=== PATIENT | female | born 1980 | race Caucasian/White ===

== ENCOUNTER 2020-12-07 06:13 | Inpatient (IN) | payer OTHER, SELFPAY ==
[2020-12-07] VITALS (108 sets, daily range): BP systolic 79–155; BP diastolic 51–97; PULSE 80–137; RESP 16–20; TEMP 36.5–37.3; O2SAT 91–99; BMI 33.8
--- NOTE | 2020-12-07 06:13 | LDADM ---
This patient, Lisa Pederson, was admitted to Labor/Delivery/Recovery 105 on 12/07/20 at 06:13. Plans for labor, pain management and were discussed with patient. Patient/family oriented to hospital policies and general routines including ID bracelet, bed and alarms, visiting hours, pain management, procedures, bathroom and other care routines, personal items, smoking policy, room service/diet and guest tray routines, security routines, and visiting hours. Patient/Family are encouraged to report perceived risks to care and to ask questions if they do not understand what they are told or what they should do. See OBIX for further documentation.
--- NOTE | 2020-12-07 06:56 | PM.IMHP ---
H&P: HPI History of Present Illness Date/Time: 12/07/20 06:56 40 yo presents for IOL at 39w6d. c/b tobacco use,benzodiazepine use, AMA, GBS, INGRIS, MTHFR, prediabetes, and FGR - 12th%efw. Still smoking 2 pack of cigarettes per day.Her care began on04/17/20. Patient was referred to Maternal- Medicine for advanced maternal age and smoking /benzodiazepine use but patient was noncompliant and never showed up to consultations. She had 11 visits was monitored with serial ultrasounds showing growth restrictions with the baby at the 12th percentile estimated weight normal and active fluid volume at the end of October. Once again patient was noncompliant with her biophysical profiles and follow-up ultrasounds with Doppler studies. She continues to smoke 2 packs of cigarettes per day despite having pneumonia during her . She had an abnormal 1 hour glucose 162 but failed to get the 3 hour glucose tolerance test and we checked the hemoglobin A1c that was 5.5% normal. Her genetic screening test were all negative the N I PT and AFP were normal. A vertex single female infant being identified with a negative anomaly screen on ultrasound. The group B strep test is negative. And her drug screen was positive for the benzodiazepine. she is now being admitted for elective induction of labor with oxytocin at 40 weeks. I explained her condition procedure and risks involved with possible labor abnormalities in maternal and indications for delivery with risks involved including but not limited to bleeding, infection, injury to bladder, bowel, baby, DVT, pneumonia, wound infection, urinary tract infection, hemorrhage and the risk of anesthesia. She understands all this accepts and agrees to proceed Chief Complaint: elective induction of labor term fgr Review of Systems Review of Systems: All systems reviewed & are unremarkable except as noted in HPI and below Constitutional: Constitutional: Reports no additional constitutional complaints Eyes: Eyes: Reports no additional eye complaints ENT: Reports system reviewed and no additional complaints, except as documented Cardiovascular: Cardiovascular: Reports no additional cardiovascular complaints Respiratory: Respiratory: Reports no additional respiratory complaints Gastrointestinal: Gastrointestinal: Reports no additional gastrointestinal complaints Genitourinary: Genitourinary: Reports no additional female genitourinary complaints Musculoskeletal: Musculoskeletal: Reports no additional musculoskeletal complaints Integumentary/Breasts: Skin/Breast: Reports system reviewed and no additional complaints, except as docu Neurologic: Reports system reviewed and no additional complaints, except as documented Psychiatric: Psychiatric: Reports no additional psychiatric complaints Endocrine: Endocrine: Reports no additional endocrine complaints Hematologic/Lymphatic: Hematologic/Lymphatic: Reports no additional hematologic/lymphatic complaints Allergic/Immunologic: Allergic/Immunologic: Reports no additional allergic/immunologic complaints [facility] Past Medical History Medical History (Updated 12/07/20 @ 07:45 by Timmy Boyle MD) Advanced maternal age (AMA) in Asthma Chronic bronchitis Depression INGRIS (generalized anxiety disorder) Heterozygous MTHFR mutation [id number] Moderate benzodiazepine use disorder affected by growth restriction Term Tobacco use disorder, severe, dependence Vaginal delivery hrs.6 lbs.9 oz.MStandard Vaginal DeliveryFull Term BirthNone Vaginal delivery hrs.5 lbs.10 oz.FStandard Vaginal DeliveryFull Term BirthNone Family History Family History (Updated 12/07/20 @ 07:37 by Timmy Boyle MD) Father Cancer Heart disease Depression Alcoholism and drug addiction in family Mother COPD (chronic obstr
--- NOTE | 2020-12-07 07:16 | WPDANESEPP ---
Anes - Eval Pre Procedure Procedure: labor epidural Date/Time: 12/07/20 07:16 Surgeon: domitila Preop Diagnosis: pain during labor Pre Op Diagnosis: iol Patient Data Age: 40 Gender: F Height: Weight: Last Vital Signs Pulse 89 12/07/20 07:12 BP 150/69 H 12/07/20 07:12 Allergies Allergy/AdvReac Type Severity Reaction Status Date / Time amoxicillin Allergy Severe Anaphylactic Verified 11/21/20 13:52 Shock prednisone Allergy Rash Verified 11/21/20 13:52 levofloxacin AdvReac Intermediate Headache Verified 11/21/20 13:52 Home Medications Medication Instructions Recorded Confirmed Type PNV cmb#95-ferrous fumarate-FA 1 tablet PO DAILY 11/21/20 11/21/20 History [] albuterol sulfate 2 puff INHALATION QID PRN 11/21/20 11/21/20 History aspirin 81 mg PO DAILY 11/21/20 11/21/20 History escitalopram oxalate 10 mg PO DAILY 11/21/20 11/21/20 History ferrous sulfate 325 mg PO DAILY 11/21/20 11/21/20 History folic acid 1 mg PO DAILY 11/21/20 11/21/20 History progesterone micronized 200 mg PO HS 11/21/20 11/21/20 History Patient hx anesthesia problems: none Family hx anesthesia problems: none PMFSH Past Medical History Medical History (Updated 12/07/20 @ 07:16 by Faiza Sandoval CRNA) Asthma Depression IUP (intrauterine ), incidental Family History Family History (Updated 11/21/20 @ 13:47 by Basilio Fu RN) Father Cancer Mother COPD (chronic obstructive pulmonary disease) Hypertension Social History Social History Substance use: never Gender identity (if verbalized by the patient): Female Spiritual care concerns: No Exam Day of Procedure 12/07/20 07:16
--- NOTE | 2020-12-07 07:20 | WPDHPUPDATE1 ---
History and Physical Update Update Date/Time: 12/07/20 07:20 History and Physical has been reviewed, including an updated exam of the patient. There are NO changes in the patient's condition. Risks, benefits, and alternatives have been discussed and questions answered. Patient agrees to proceed with procedure. 40 yo presents for IOL at 39w6d. c/b tobacco use,benzodiazepine use, AMA, GBS, INGRIS, MTHFR, prediabetes, and FGR - 12th%efw. Still smoking 2 pack of cigarettes per day.Her care began on04/17/20. Patient was referred to Maternal- Medicine for advanced maternal age and smoking /benzodiazepine use but patient was noncompliant and never showed up to consultations. She had 11 visits was monitored with serial ultrasounds showing growth restrictions with the baby at the 12th percentile estimated weight normal and active fluid volume at the end of October. Once again patient was noncompliant with her biophysical profiles and follow-up ultrasounds with Doppler studies. She continues to smoke 2 packs of cigarettes per day despite having pneumonia during her . She had an abnormal 1 hour glucose 162 but failed to get the 3 hour glucose tolerance test and we checked the hemoglobin A1c that was 5.5% normal. Her genetic screening test were all negative the N I PT and AFP were normal. A vertex single female being identified with a negative anomaly screen on ultrasound. The group B strep test is negative. And her drug screen was positive for the benzodiazepine. she is now being admitted for elective induction of labor with oxytocin at 40 weeks. I explained her condition procedure and risks involved with possible labor abnormalities in maternal and indications for delivery with risks involved including but not limited to bleeding, infection, injury to bladder, bowel, baby, DVT, pneumonia, wound infection, urinary tract infection, hemorrhage and the risk of anesthesia. She understands all this accepts and agrees to proceed
[2020-12-07 07:21] LABS: Basophils Absolute Auto 0.1 K/mm3 (0.0-0.1); Basophils Percent Auto 0.4 % (0.2-1.2); Eosinophils Absolute Auto 0.3 K/mm3 (0-0.3); Eosinophils Percent Auto 1.6 % (0-4.4); Hematocrit 32.4 % (37.0-47.0); Hemoglobin 10.2 g/dL (12.0-15.0); Immature Granulocyte Absolute 0.19 K/mm3 (0.00-0.031); Lymphocytes Absolute Auto 3.75 K/mm3 (0.9-3.2); Lymphocytes Percent Auto 19.7 % (18.3-44.2); Mean Corpuscular HGB Conc 31.5 g/dl (32-36); Mean Corpuscular Hemoglobin 28.1 pg (26-34); Mean Corpuscular Volume 89.3 fl (80-100); Mean Platelet Volume 9.8 fl (7.4-10.4); Monocytes Percent Auto 10.4 % (2.6-8.5); Neutrophils Absolute Auto 12.8 K/mm3 (1.3-6.7); Neutrophils Percent Auto 66.9 % (45.5-73.1); Platelet Count Result 418 k/mm3 (150-375); Red Blood Count 3.63 M/mm3 (4.2-5.4); Red Cell Distribution Width 15.5 % (11.5-14.5); White Blood Count 19.1 K/mm3 (4.5-10.0)
[2020-12-07] MEDS: LACTATED RINGERS 1,000 ML 125 ML IV CONT (08:02)
[2020-12-07] MEDS: OXYTOCIN 30 UNITS/NS 500 ML 30 UNITS/500 ML BAG IV CONT (08:04)
[2020-12-07 08:38] LABS: Alanine Aminotransferase 8 U/L (4-35); Albumin Level 3.2 g/dL (3.5-5.1); Alkaline Phosphatase 134 U/L (38-126); Anion Gap 8 mmol/L (8-16); Aspartate Amino Transferase 18 U/L (14-36); Bilirubin,Total 0.3 mg/dL (0.2-1.3); Blood Urea Nitrogen 13 mg/dL (7-17); Calcium 9.4 mg/dL (8.4-10.2); Carbon Dioxide 21 mmol/L (22-30); Chloride 106 mmol/L (98-107); Estimated Glomerular Filt Rate > 60; Glucose 91 mg/dL (65-110); Sodium 135 mmol/L (137-145); Uric Acid 5.3 mg/dL (2.5-7.5)
[2020-12-07] MEDS: ONDANSETRON INJ 4 MG/2 ML VIAL IV PUSH (11:56)
[2020-12-07 12:41] LABS: Amphetamine Screen Urine Negative (Negative); Barbiturate Screen Urine Negative (Negative); Benzodiazepines Screen Urine Negative (Negative); Cannabinoid Screen Urine Negative (Negative); Cocaine Screen Urine Negative (Negative); Methadone Screen Urine Negative (Negative); Opiate Screen Urine Negative (Negative); Phencyclidine Screen Urine Negative (Negative)
--- NOTE | 2020-12-07 17:58 | PM.OBPNLAB ---
Pain Control Date/time seen: 12/07/20 17:58 Pain control: tolerating well Comments: IOL pitocin Pelvic Exam Dilation (cm): 4 Effacement (%): 100 station: -1 Amniotic membrane status: Ruptured (AROM CLEAR af) Contractions Monitor mode: External Contraction frequency: 2 Contraction duration: 45 Contraction pattern: Regular Contraction phase: Contraction Contraction intensity: Strong/Firm Status status: Category l Assessment and Plan Pitocin rate (mU/min): 4 Assessment: active labor and induction ongoing Plan: continuous present management Comments: NCB MONITOR AND OBSERVE
[2020-12-07] MEDS: fentaNYL CITRATE INJ (*CRX) 100 MCG/2 ML VIAL 50 MCG IV PUSH (18:29)
--- NOTE | 2020-12-07 19:15 | P.PCNOB_ITS ---
OB - Delivery Note Procedure Delivery date: 12/07/20 Procedure: Normal spontaneous vertex vaginal delivery a viable female infant and placenta Repair of first-degree perineal laceration events: Labor Induction Intrapartal events: None Induction method: per pitocin protocol Delivery augmentation: rupture of membranes Delivery monitor: external FHT and external uterine Route of delivery: Episiotomy description: None Laceration Description: Perineal - 1st Degree Delivery repair: chromic Specimen: Yes ( placenta, cord blood gases, cord blood) Quantitative Blood Loss (ml): 250 Anesthesia type: None Disposition: floor Complications: none Narrative: patient completely dilated normal spontaneous vertex vaginal delivery of a viable female over an intact perineum infant delivered and placed onto the maternal abdomen after normal delivery of shoulders and rest of the baby cord clamped and cut handed to the nursery nurse in attendance scores 8 9 at 1 and 5 minutes weight 5 lb 11 oz 18-1/2 inches long taken to the nursery in stable condition. Placenta delivered intact three- vessel cord the uterus contracted well Pitocin given intravenously first-degree perineal laceration repaired with 2 0 chromic suture interrupted fashion. Cervi x and rectum were checked no sponges left in the vagina the anal sphincters intact counts correct complications none patient tolerated the procedure well in LDR room 1. 0 5 stable condition. [place] Baby Date of : 12/07/20 Time of : 18:52 Weeks of gestation at delivery: 40 gender: Female ( Shanna) Weight (pounds): 5 Weight (ounces): 11 presentation: vertex position: Left Occiput Anterior Placenta delivery description: Spontaneous and Normal Configuration cord vessel description: 3 Vessels score one minute: 8 score five minutes: 9 Narrative: normal transition normal exam
[2020-12-07] MEDS: OXYTOCIN 30 UNITS/NS 500 ML 30 UNITS/500 ML BAG 125 UNITS IV CONT (19:36)
[2020-12-07] MEDS: WITCH HAZEL 40 PADS 1 PAD TOPICAL (20:44)
[2020-12-07] MEDS: IBUPROFEN 600 MG TABLET PO (20:44)
[2020-12-07] MEDS: BENZOCAINE 20% AER SPR (*SP) 56 GM CAN 1 SPRAY TOPICAL (20:44)
[2020-12-08] MEDS: ACETAMINOPHEN 325 MG TABLET 650 MG PO ×2 (03:23→19:35)
[2020-12-08] MEDS: IBUPROFEN 600 MG TABLET PO ×2 (03:28→13:13)
[2020-12-08 05:05] LABS: Hematocrit 27.9 % (37.0-47.0); Hemoglobin 8.6 g/dL (12.0-15.0)
--- NOTE | 2020-12-08 06:13 | PM.OBPNVD ---
OB - PN: Subj Subjective Date/time seen: 12/08/20 06:13 Patient comments: no complaints baby status: doing well feeding status: breast and bottle feeding OB - PN: Obj Data Labs CBC & Chem 7: 12/08/20 04:39 12/07/20 07:59 Labs: Laboratory Results - last 24 hr 12/07/20 12/07/20 12/07/20 06:57 06:57 07:59 WBC 19.1 H RBC 3.63 L Hgb 10.2 L Hct 32.4 L MCV 89.3 MCH 28.1 MCHC 31.5 L RDW 15.5 H Plt Count 418 H MPV 9.8 Immature Gran % (Auto) 1.0 H Neut % (Auto) 66.9 Lymph % (Auto) 19.7 Wise % (Auto) 10.4 H Eos % (Auto) 1.6 Baso % (Auto) 0.4 Lymph # (Auto) 3.75 H Wise # (Auto) 2.0 H Eos # (Auto) 0.3 Baso # (Auto) 0.1 Abs Immat Gran (auto) 0.19 H Absolute Neuts (auto) 12.8 H Absolute Nucleated RBC 0.0 Nucleated RBC % 0.0 Sodium 135 L Potassium 4.0 Chloride 106 Carbon Dioxide 21 L Anion Gap 8 BUN 13 Creatinine 0.60 L Estim Creat Clear Calc Not Reportable Estimated GFR > 60 Glucose 91 Uric Acid 5.3 Calcium 9.4 Total Bilirubin 0.3 AST 18 ALT 8 Alkaline Phosphatase 134 H Total Protein 6.0 L Albumin 3.2 L Urine Opiates Screen Urine Methadone Screen Ur Barbiturates Screen Ur Phencyclidine Scrn Ur Amphetamine Screen U Benzodiazepines Scrn Urine Cocaine Screen U Cannabinoids Screen Blood Type O Positive Antibody Screen Negative 12/07/20 12/08/20 10:01 04:39 WBC RBC Hgb 8.6 L Hct 27.9 L MCV MCH MCHC RDW Plt Count MPV Immature Gran % (Auto) Neut % (Auto) Lymph % (Auto) Wise % (Auto) Eos % (Auto) Baso % (Auto) Lymph # (Auto) Wise # (Auto) Eos # (Auto) Baso # (Auto) Abs Immat Gran (auto) Absolute Neuts (auto) Absolute Nucleated RBC Nucleated RBC % Sodium Potassium Chloride Carbon Dioxide Anion Gap BUN Creatinine Estim Creat Clear Calc Estimated GFR Glucose Uric Acid Calcium Total Bilirubin AST ALT Alkaline Phosphatase Total Protein Albumin Urine Opiates Screen Negative Urine Methadone Screen Negative Ur Barbiturates Screen Negative Ur Phencyclidine Scrn Negative Ur Amphetamine Screen Negative U Benzodiazepines Scrn Negative Urine Cocaine Screen Negative U Cannabinoids Screen Negative Blood Type Antibody Screen OB - PN A/P Assessment and Plan (1) Anemia: Code(s): D64.9 - Anemia, unspecified Status: Acute (2) Term delivered: Code(s): O80 - Encounter for full-term uncomplicated delivery Status: Acute Plan day: 1 Plan: routine care and discharge home Comments: iron Time Spent With Patient Time: Total time spent is greater than 50% in coordination of care (as documented) at patient's floor/unit and/or counseling patient: Time with patient: less than 15 minutes Review of Systems Review of Systems: All systems reviewed & are unremarkable except as noted in HPI and below Exam Const: General: cooperative, healthy appearing, comfortable, no acute distress, alert, awake and Physically active Nutritional Appearance: average body habitus Orientation/consciousness: patient oriented x3 Limitations: no limitations HENMT: Head: normal to inspection Eyes: General: appearance normal, both eyes and all related structures Neck: Neck: normal visual inspection Chest: Chest palpation & inspection: normal inspection of the chest Resp: Effort & Inspection: normal respiratory effort Cardio: Rate: regular rate Rhythm: regular rhythm GI: Inspection: normal to inspection : External Female Exam: normal external appearance Back/Spine/Pelvis: Back: no CVA tenderness Skin: General skin exam: normal color Neuro: General: patient oriented x3, gait normal, tone normal and moves all extremities Extrem: General
--- NOTE | 2020-12-08 06:19 | PM.OBDSVD ---
DS: Admitting Diagnosis Admitting Diagnosis 1) Term : Code(s): Z34.90 - Encounter for supervision of normal , unspecified, unspecified trimester Status: Acute (2) affected by growth restriction: Code(s): O36.5990 - Maternal care for other known or suspected poor growth, unspecified trimester, not applicable or unspecified Status: Acute (3) Advanced maternal age (AMA) in : Status: Acute (4) Encounter for elective induction of labor: Code(s): Z34.90 - Encounter for supervision of normal , unspecified, unspecified trimester Status: Acute (5) Moderate benzodiazepine use disorder: Code(s): F13.20 - Sedative, hypnotic or anxiolytic dependence, uncomplicated Status: Acute (6) Tobacco use disorder, severe, dependence: Code(s): F17.200 - Nicotine dependence, unspecified, uncomplicated Status: Acute (7) Heterozygous MTHFR mutation [id number]: Code(s): Z15.89 - Genetic susceptibility to other disease Status: Acute (8) Depression: Code(s): F32.9 - Major depressive disorder, single episode, unspecified Status: Acute (9) INGRIS (generalized anxiety disorder): Code(s): F41.1 - Generalized anxiety disorder Status: Acute (10) Chronic bronchitis: Code(s): J42 - Unspecified chronic bronchitis DS: Discharge Diagnosis Discharge Diagnosis (1) Term delivered: Code(s): O80 - Encounter for full-term uncomplicated delivery Status: Acute (2) Encounter for elective induction of labor: Code(s): Z34.90 - Encounter for supervision of normal , unspecified, unspecified trimester Status: Acute (3) affected by growth restriction: Code(s): O36.5990 - Maternal care for other known or suspected poor growth, unspecified trimester, not applicable or unspecified Status: Acute (4) Tobacco use disorder, severe, dependence: Code(s): F17.200 - Nicotine dependence, unspecified, uncomplicated Status: Acute (5) Moderate benzodiazepine use disorder: Code(s): F13.20 - Sedative, hypnotic or anxiolytic dependence, uncomplicated Status: Acute (6) Heterozygous MTHFR mutation [id number]: Code(s): Z15.89 - Genetic susceptibility to other disease Status: Acute (7) INGRIS (generalized anxiety disorder): Code(s): F41.1 - Generalized anxiety disorder Status: Acute (8) Chronic bronchitis: Code(s): J42 - Unspecified chronic bronchitis Status: Acute (9) Advanced maternal age (AMA) in : Status: Acute (10) Depression: Code(s): F32.9 - Major depressive disorder, single episode, unspecified Status: Acute OB - DS: Summary Hospital Course Time spent discussing smoking cessation with patient: 3 to 10 minutes OB Procedures : Ultrasound OB Procedures Intrapartum: Spontaneous Vag Delivery OB Procedures: : None Peripartum Data Infant Delivery Method: Natural Vaginal Laceration Description: Perineal - 1st Degree Episiotomy description: None complications: none 1: Gender: Female ( Shanna) Disposition of : home Status at Discharge Cognitive/behavioral status at discharge: normal Functional status at discharge: independent ambulation Overall status at discharge: patient is back to baseline Time Spent with Patient Time attestation: Total time spent providing and/or coordinating discharge services: Time spent: Less than 30 minutes Exam Const: General: cooperative, comfortable, well developed, alert, awake and Physically active Nutritional Appearance: average body habitus and thin Orientation/consciousness: patient oriented x3 Limitations: no limitations HENMT: Head: normal to inspection Eyes: General: appearance normal, both eyes and all related structures Neck: Neck: normal visual inspection Chest:
[2020-12-08] MEDS: POLYSACCHARIDE IRON COMPLEX 150 MG CAPSULE PO (07:03)
[2020-12-08] MEDS: MULTIVIT/MIN/PREN/FOL AC/IRON TABLET 1 TAB PO (07:03)
[2020-12-08] MEDS: DOCUSATE SODIUM 100 MG CAPSULE PO (07:03)
[2020-12-08 07:55] VITALS: BP 114/69; PULSE 82; RESP 18; TEMP 37.1; O2SAT 97
[2020-12-08 08:00] VITALS: PULSE 80; RESP 18; O2SAT 99
[2020-12-08 09:05] LABS: Rapid Plasma Reagin Non-Reactive (NonReactive)
[2020-12-08 11:45] VITALS: BP 130/67; PULSE 80; RESP 18; TEMP 37.1; O2SAT 99
[2020-12-08 13:30] VITALS: PULSE 80; RESP 18; O2SAT 99
--- NOTE | 2020-12-08 16:21 | PCCCNOTE ---
Care Coordination Consult: Met with pt. today who reports this is her third child. She lives at home with JUANITO Laboy and her two other children. Pt. has family support. Has all necessary supplies for baby girl including a crib, carseat, clothing, bottles, and diapers. Pt. is current with [facility] and [facility] services and will add baby at discharge. Did provide a gift basket to mother. Pt. is current with services at [facility] in [place] and sees a behavioral health specialist and PMD at their clinic. Pt. does have anxiety and has taken medication that has been prescribed through [facility]. Pt. anticipates discharge today. Reports [facility] will transport her home. Pt. plans to seek further care for baby through the [facility]. Pt. denies any case management needs.
== END 2020-12-08 19:50 | disposition home or self-care (01) | DRG 560 ==
LOC: ANHLDR 19:25 → ANHOB2 21:16
PROVIDERS: Admitting Provider Obstetrics & Gynecology; Visit Provider Obstetrics & Gynecology
DX: O36.5930 Maternal care for other known or suspected poor fetal growth, third trimester, not applicable or unspecified (principal); Z37.0 Single live birth; Z3A.39 39 weeks gestation of pregnancy; O70.0 First degree perineal laceration during delivery; O36.8330 Maternal care for abnormalities of the fetal heart rate or rhythm, third trimester, not applicable or unspecified; O99.284 Endocrine, nutritional and metabolic diseases complicating childbirth; E72.12 Methylenetetrahydrofolate reductase deficiency; O99.334 Smoking (tobacco) complicating childbirth; F17.210 Nicotine dependence, cigarettes, uncomplicated; O99.324 Drug use complicating childbirth; F19.90 Other psychoactive substance use, unspecified, uncomplicated; O99.52 Diseases of the respiratory system complicating childbirth; J45.909 Unspecified asthma, uncomplicated; O99.344 Other mental disorders complicating childbirth; F41.1 Generalized anxiety disorder; F32.9 Major depressive disorder, single episode, unspecified; J42 Unspecified chronic bronchitis
CPT/HCPCS: 36415; 80053; 80307; 84550; 85014; 85018; 85025; 86592; 86850; 86900; 86901; 88307; A9270; J2405; J2590; J3010; J7120